=== PATIENT | female | born 1975 ===

== ENCOUNTER 2018-01-04 23:23 | Emergency (ER) | payer SELFPAY ==
[2018-01-05 02:29] LABS: ABSOLUTE BASOPHILS # (AUTO) 0.1 10^3/uL (0.0-0.2); ABSOLUTE LYMPHOCYTES (AUTO) 0.7 10^3/uL (0.5-4.7); ABSOLUTE MONOCYTES (AUTO) 0.1 10^3/uL (0.1-1.4); BASOPHILS % (AUTO) 0.7 % (0-2); HEMATOCRIT 36.7 % (36.0-47.0); HEMOGLOBIN 11.9 g/dL (12.0-15.5); LYMPHOCYTES % (AUTO) 8.7 % (13-45); MEAN CORPUSCULAR HEMOGLOBIN 25.4 pg (27.0-33.4); MEAN CORPUSCULAR HGB CONC 32.4 g/dL (32.0-36.0); MEAN CORPUSCULAR VOLUME 78 fl (80-97); PLATELET COUNT 384 10^3/uL (150-450); RED BLOOD COUNT 4.69 10^6/uL (3.72-5.28); RED CELL DISTRIBUTION WIDTH 18.7 % (11.5-14.0); SEGMENTED NEUTROPHILS % (AUTO) 89.6 % (42-78); TOTAL CELLS COUNTED % (AUTO) 100 %; WHITE BLOOD COUNT 7.8 10^3/uL (4.0-10.5)
[2018-01-05 02:41] LABS: ALANINE AMINOTRANSFERASE 17 U/L (9-52); ALBUMIN 4.5 g/dL (3.5-5.0); ALKALINE PHOSPHATASE 72 U/L (38-126); ANION GAP 9 (5-19); ASPARTATE AMINO TRANSFERASE 18 U/L (14-36); BILIRUBIN,DIRECT 0.3 mg/dL (0.0-0.4); BILIRUBIN,TOTAL 0.3 mg/dL (0.2-1.3); BLOOD UREA NITROGEN 9 mg/dL (7-20); CALCIUM 10.3 mg/dL (8.4-10.2); CARBON DIOXIDE 22 mmol/L (22-30); CHLORIDE 109 mmol/L (98-107); CREATINE KINASE 110 U/L (30-135); GLUCOSE 149 mg/dL (75-110); POTASSIUM 4.5 mmol/L (3.6-5.0); TOTAL PROTEIN 7.2 g/dL (6.3-8.2)
--- NOTE | 2018-01-05 02:42 | RADIOLOGY REPORT (SQ) ---
EXAM DESCRIPTION: CHEST PA/LAT CLINICAL HISTORY: chest pain under left breast sharp COMPARISON: None. FINDINGS: Frontal and lateral views of the chest. The cardiomediastinal silhouette has normal size and contour. No consolidation, pneumothorax, or pleural effusion. Postoperative change of the cervical spine. No displaced rib fractures identified. Upper abdominal soft tissues are unremarkable. IMPRESSION: 1. No acute pulmonary process identified.
[2018-01-05 02:53] LABS: CREATINE KINASE MB 1.02 ng/mL (<4.55)
[2018-01-05 02:54] LABS: TROPONIN I < 0.012 ng/mL
[2018-01-05] MEDS ORDERED: LIDOCAINE 5% (700 MG) TRANSDERMAL ADH..PATCH TP ONE (06:35)
--- NOTE | 2018-01-05 06:36 | ER Document Report ---
ED General - General Chief Complaint: Breast Problem Stated Complaint: BREAST PAIN Time Seen by Provider: 01/05/18 01:17 TRAVEL OUTSIDE OF THE [place] IN LAST 30 DAYS: No - HPI Patient complains to provider of: Left lower chest pain left breast pain Notes: Patient coming in for evaluation of left lower chest pain left breast pain started at 945 night prior to arrival. Patient denies any fevers chills nausea vomiting with the pain. Denies any recent trauma. Patient states pain is exacerbated whenever she bends backwards bends forward or takes a deep breath in. Patient sleeping upon my evaluation no signs of any obvious distress. - Related Data Allergies/Adverse Reactions: azithromycin [From Zithromax] Allergy (Verified 01/05/18 01:20) erythromycin base [Erythromycin Base] Allergy (Verified 06/05/14 22:14) fluoxetine HCl [From Prozac] Allergy (Verified 06/05/14 22:14) milnacipran HCl [From Savella] Allergy (Verified 06/05/14 22:14) triamcinolone acetonide [From Kenalog] Allergy (Verified 06/05/14 22:14) Past Medical History - Social History Smoking Status: Current Every Day Smoker Chew tobacco use (# tins/day): No Frequency of alcohol use: Occasional Drug Abuse: None Family History: Reviewed & Not Pertinent Patient has suicidal ideation: No Patient has homicidal ideation: No Renal/ Medical History: Denies: Hx Peritoneal Dialysis Past Surgical History: Reports: Hx Appendectomy, Hx Section, Hx Orthopedic Surgery, Hx Tonsillectomy - Immunizations Hx Diphtheria, Pertussis, Tetanus Vaccination: Yes Review of Systems - Review of Systems Constitutional: No symptoms reported EENT: No symptoms reported Cardiovascular: Chest pain - Chest wall pain Respiratory: No symptoms reported Gastrointestinal: No symptoms reported Genitourinary: No symptoms reported Female Genitourinary: No symptoms reported Musculoskeletal: No symptoms reported Skin: No symptoms reported Hematologic/Lymphatic: No symptoms reported Neurological/Psychological: No symptoms reported Physical Exam - Vital signs Vitals: Temp Pulse Resp BP Pulse Ox 98.5 F 101 H 18 121/71 99 01/05/18 01:20 01/05/18 01:20 01/05/18 01:20 01/05/18 01:20 01/05/18 01:20 Interpretation: Normal - General General appearance: Appears well, Alert - HEENT Head: Normocephalic, Atraumatic Eyes: Normal Pupils: PERRL - Respiratory Respiratory status: No respiratory distress Chest status: Tender - Tenderness to palpation of the left lower chest. Evaluation underneath the breast does not reveal any rashes or any bruising. Breath sounds: Normal Chest palpation: Normal - Cardiovascular Rhythm: Regular Heart sounds: Normal auscultation Murmur: No - Abdominal Inspection: Normal Distension: No distension Bowel sounds: Normal Tenderness: Nontender Organomegaly: No organomegaly - Back Back: Normal, Nontender - Extremities General upper extremity: Normal inspection, Nontender, Normal color, Normal ROM , Normal temperature General lower extremity: Normal inspection, Nontender, Normal color, Normal ROM , Normal temperature, Normal weight bearing. No: Silvano's sign - Neurological Neuro grossly intact: Yes Cognition: Normal Orientation: AAOx4 [place] Coma Scale Eye Opening: Spontaneous Manuel Coma Scale Verbal: Oriented Manuel Coma Scale Motor: Obeys Commands [place] Coma Scale Total: 15 Speech: Normal Motor strength normal: LUE, RUE, LLE, RLE Sensory: Normal - Psychological Associated symptoms: Normal affect, Normal mood - Skin Skin Temperature: Warm Skin Moisture: Dry Skin Color: Normal Course - Re-evaluation Re-evalutation: 01/05/18 14:53 The patient has atypical chest pain as the patient's chest pain is not suggestive of pulmonary embolus, cardiac ischemia, aortic dissection, or other serious etiology. Given the extremely low risk of these diagnoses further testing and evaluation for these possibilities does not appear to be indicated at this time. The patient has been instructed to return if the symptoms worsen or change in any way. Evaluation is consistent with chest wall pain will discharge home - Vital Signs Vital signs: Temp Pulse Resp BP Pulse Ox 98.8 F 86 16 112/76 98 01/05/18 07:06 01/05/18 07:06 01/05/18 07:06 01/05/18 07:06 01/05/18 07:06 - Laboratory Result Diagrams: 01/05/18 02:16 01/05/18 02:16 Laboratory results interpreted by me: 01/05/18 01/05/18 02:16 02:16 Hgb 11.9 L MCV 78 L MCH 25.4 L RDW 18.7 H Seg Neutrophils % 89.6 H Lymphocytes % 8.7 L Monocytes % 1.0 L Chloride 109 H Glucose 149 H Calcium 10.3 H Discharge - Discharge Clinical Impression: left lower chest pain Condition: Good Disposition: HOME, SELF-CARE Instructions: Chest Wall Pain ([facility]), Chest Pain of Unclear Cause ([facility]) Additional Instructions: Your laboratory studies that did not show any signs of cardiac pathology or lung pathology. I believe your symptoms more muscle skeletal in nature he may have injured muscle and this might hurts when he move or bend. Again your laboratory studies are otherwise negative. Please follow-up with your primary care physician take your home medications as prescribed. Referrals: IRVIN ESPINOSA MD [Primary Care Provider] - Follow up as needed
[2018-01-05 07:11] VITALS: BP 112/76
--- NOTE | 2018-01-05 09:17 | EKG REPORT ---
SEVERITY:- BORDERLINE ECG - SINUS TACHYCARDIA BORDERLINE R WAVE PROGRESSION, ANTERIOR LEADS BORDERLINE T ABNORMALITIES, ANT-LAT LEADS : Confirmed by: Nikky Levin 05-Jan-2018 09:17:01
== END 2018-01-05 07:06 | disposition home or self-care (01) ==
LOC: ER 23:23
DX: R07.9 Chest pain, unspecified (principal); F17.200 Nicotine dependence, unspecified, uncomplicated; Z88.3 Allergy status to other anti-infective agents
CPT/HCPCS: 36415; 71046; 80053; 82550; 82553; 84484; 84703; 85025; 93005; 93010; 99285

== ENCOUNTER 2020-02-05 16:38 | Emergency (ER) | payer SELFPAY ==
[2020-02-05] MEDS ORDERED: NORMAL SALINE 1000 ML 1,000 ML IV ONE ×2 (17:50→19:32)
[2020-02-05] MEDS ORDERED: ONDANSETRON HCL INJ/PF 4 MG/2 ML SDV IV ONE (17:50)
--- NOTE | 2020-02-05 17:52 | ER Document Report ---
ED Medical Screen (RME) - General Chief Complaint: Abdominal Pain Stated Complaint: ABDOMINAL PAIN,VOMITING,DIARRHEA Time Seen by Provider: 02/05/20 17:46 Primary Care Provider: AARON MARC MD [Primary Care Provider] - Follow up as needed Mode of Arrival: Wheelchair Information source: Patient Notes: 45-year-old female with history of neck surgery, low cortisone presents emergency department with complaints of vomiting since 3 PM yesterday. She reports she ate a hamburger and Hebrew fries. Started vomiting shortly after that. Complains her abdomen is sore from vomiting. Reports she vomited before the abdomen started hurting. Denies fever. Has had some diarrhea. Did not receive flu vaccine this year. I have greeted and performed a rapid initial assessment of this patient. A comprehensive ED assessment and evaluation of the patient, analysis of test results and completion of the medical decision making process will be conducted by additional ED providers. TRAVEL OUTSIDE OF THE [place] IN LAST 30 DAYS: No - Related Data Allergies/Adverse Reactions: azithromycin [From Zithromax] Allergy (Verified 02/05/20 17:45) erythromycin base [Erythromycin Base] Allergy (Verified 02/05/20 17:45) fluoxetine HCl [From Prozac] Allergy (Verified 02/05/20 17:45) milnacipran HCl [From Savella] Allergy (Verified 02/05/20 17:45) triamcinolone acetonide [From Kenalog] Allergy (Verified 02/05/20 17:45) Past Medical History Renal/ Medical History: Denies: Hx Peritoneal Dialysis Past Surgical History: Reports: Hx Appendectomy, Hx Section, Hx Orthopedic Surgery, Hx Tonsillectomy - Immunizations Hx Diphtheria, Pertussis, Tetanus Vaccination: Yes Physical Exam - Vital signs Vitals: Temp Pulse Resp BP Pulse Ox 99.0 F 127 H 18 115/95 H 98 02/05/20 16:47 02/05/20 16:47 02/05/20 16:47 02/05/20 16:47 02/05/20 16:47 Course - Vital Signs Vital signs: Temp Pulse Resp BP Pulse Ox 99.0 F 127 H 18 115/95 H 98 02/05/20 16:47 02/05/20 16:47 02/05/20 16:47 02/05/20 16:47 02/05/20 16:47 Doctor's Discharge - Discharge Referrals: AARON MARC MD [Primary Care Provider] - Follow up as needed
[2020-02-05 18:37] LABS: ABSOLUTE BASOPHILS # (AUTO) 0.1 10^3/uL (0.0-0.2); ABSOLUTE EOSINOPHILS # (AUTO) 0.1 10^3/uL (0.0-0.6); ABSOLUTE LYMPHOCYTES (AUTO) 1.6 10^3/uL (0.5-4.7); ABSOLUTE MONOCYTES (AUTO) 0.6 10^3/uL (0.1-1.4); ABSOLUTE NEUT (AUTO) 7.2 10^3/uL (1.7-8.2); BASOPHILS % (AUTO) 0.6 % (0-2); EOSINOPHILS % (AUTO) 0.7 % (0-6); HEMOGLOBIN 13.2 g/dL (12.0-15.5); LYMPHOCYTES % (AUTO) 16.6 % (13-45); MEAN CORPUSCULAR HEMOGLOBIN 25.4 pg (27.0-33.4); MEAN CORPUSCULAR HGB CONC 32.2 g/dL (32.0-36.0); MEAN CORPUSCULAR VOLUME 79 fl (80-97); MONOCYTES % (AUTO) 6.1 % (3-13); PLATELET COUNT 367 10^3/uL (150-450); RED CELL DISTRIBUTION WIDTH 17.4 % (11.5-14.0); TOTAL CELLS COUNTED % (AUTO) 100 %; WHITE BLOOD COUNT 9.4 10^3/uL (4.0-10.5)
[2020-02-05 18:55] LABS: ALBUMIN 4.3 g/dL (3.5-5.0); ALKALINE PHOSPHATASE 70 U/L (38-126); ANION GAP 8 (5-19); ASPARTATE AMINO TRANSFERASE 21 U/L (14-36); BILIRUBIN,TOTAL 0.4 mg/dL (0.2-1.3); BLOOD UREA NITROGEN 23 mg/dL (7-20); CALCIUM 9.2 mg/dL (8.4-10.2); CARBON DIOXIDE 28 mmol/L (22-30); CHLORIDE 100 mmol/L (98-107); GLUCOSE 99 mg/dL (75-110); POTASSIUM 4.2 mmol/L (3.6-5.0); TOTAL PROTEIN 6.9 g/dL (6.3-8.2)
[2020-02-05 19:02] LABS: APPEARANCE,URINE SLIGHTLY-CLOUDY; BILIRUBIN,URINE NEGATIVE (NEGATIVE); COLOR,URINE AMBER; GLUCOSE, URINE NEGATIVE (NEGATIVE); KETONES,URINE NEGATIVE (NEGATIVE); LEUKOCYTE ESTERASE,URINE NEGATIVE (NEGATIVE); NITRITE,URINE NEGATIVE (NEGATIVE); PROTEIN,URINE 30 mg/dL (NEGATIVE); URINE SPECIFIC GRAVITY 1.035
--- NOTE | 2020-02-05 19:07 | ER Document Report ---
ED General - General Chief Complaint: Vomiting Stated Complaint: ABDOMINAL PAIN,VOMITING,DIARRHEA Time Seen by Provider: 02/05/20 17:46 Primary Care Provider: AARON MARC MD [Primary Care Provider] - Follow up as needed Mode of Arrival: Wheelchair Information source: Patient, Relative Notes: 45-year-old female with history of neck surgery, low cortisone presents emergency department with complaints of vomiting since 3 PM yesterday. She reports she ate a hamburger and Yoruba fries. Started vomiting shortly after that. Complains her abdomen is sore from vomiting. Reports she vomited before the abdomen started hurting. Denies fever. Has had some diarrhea. 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 No other family members are sick patient has diffuse abdominal soreness. She just continues to have nausea but now is only dry heaving and no longer has any diarrhea. Her mouth is quite dry. Her blood pressure was low upon arrival according to her daughter. Her blood pressure is 115/91 at this time. Both daughter and patient report that this is their normal blood pressure. Patient is already had 1 bag of IV saline. " She was diagnosed with thyroid disease here 2 years ago with a TSH of 132 and her looked up multiple symptoms she was having and diagnosed her with Jesus Manuel's disease. " Indeed she went to [place] [facility] and was diagnos ed with adrenal insufficiency. She now takes steroids. TRAVEL OUTSIDE OF THE [place] IN LAST 30 DAYS: No - HPI Onset: Just prior to arrival Onset/Duration: Sudden Quality of pain: Achy Severity: Mild Pain Level: 1 Associated symptoms: Nausea, Vomiting Exacerbated by: Food Relieved by: Denies - Related Data Allergies/Adverse Reactions: azithromycin [From Zithromax] Allergy (Verified 02/05/20 17:45) erythromycin base [Erythromycin Base] Allergy (Verified 02/05/20 17:45) fluoxetine HCl [From Prozac] Allergy (Verified 02/05/20 17:45) milnacipran HCl [From Savella] Allergy (Verified 02/05/20 17:45) triamcinolone acetonide [From Kenalog] Allergy (Verified 02/05/20 17:45) Past Medical History - General Information source: Patient - Social History Smoking Status: Current Every Day Smoker Chew tobacco use (# tins/day): No Frequency of alcohol use: Occasional Drug Abuse: None Family History: Reviewed & Not Pertinent Patient has suicidal ideation: No Patient has homicidal ideation: No Endocrine Medical History: Reports: Hx Hypothyroidism, Other - adrenal disease Renal/ Medical History: Denies: Hx Peritoneal Dialysis Past Surgical History: Reports: Hx Appendectomy, Hx Section, Hx Orthopedic Surgery, Hx Tonsillectomy - Immunizations Hx Diphtheria, Pertussis, Tetanus Vaccination: Yes Review of Systems - Review of Systems Constitutional: See HPI, Malaise, Weakness, Weight loss, Recent illness EENT: No symptoms reported Cardiovascular: No symptoms reported Respiratory: No symptoms reported Gastrointestinal: See HPI, Abdominal pain, Diarrhea, Nausea, Vomiting, Poor appetite, Poor fluid intake Genitourinary: See HPI Female Genitourinary: No symptoms reported Musculoskeletal: No symptoms reported Skin: No symptoms reported Hematologic/Lymphatic: No symptoms reported Neurological/Psychological: No symptoms reported Physical Exam - Vital signs Vitals: Temp Pulse Resp BP Pulse Ox 99.0 F 127 H 18 115/95 H 98 02/05/20 16:47 02/05/20 16:47 02/05/20 16:47 02/05/20 16:47 02/05/20 16:47 Interpretation: Normal - General General appearance: Alert In distress: Mild - HEENT Head: Normocephalic Eyes: Normal Conjunctiva: Normal Cornea: Normal Extraocular movements intact: Yes Eyelashes: Normal Pupils: PERRL Mouth/Lips: Normal Mucous membranes: Dry Pharynx: Normal Neck: Normal - Respiratory Respiratory status: No respiratory distress Chest status: Nontender Breath sounds: Normal Chest palpation: Normal - Cardiovascular Rhythm: Regular Heart sounds: Normal auscultation Murmur: No Friction rub: No Km's crunch: No - Abdominal Inspection: Normal Distension: No distension Bowel sounds: Hyperactive Tenderness: Tender Organomegaly: No organomegaly - Back Back: Normal - Extremities General upper extremity: Normal inspection General lower extremity: Normal inspection - Neurological Neuro grossly intact: Yes Cognition: Normal Orientation: AAOx4 [place] Coma Scale Eye Opening: Spontaneous [place] Coma Scale Verbal: Oriented [place] Coma Scale Motor: Obeys Commands Manuel Coma Scale Total: 15 Speech: Normal Cranial nerves: Normal Cerebellar coordination: Normal Motor strength normal: LUE, RUE, LLE, RLE - Psychological Associated symptoms: Normal affect - Skin Skin Temperature: Warm Skin Moisture: Dry Skin Turgor: Tenting Course - Vital Signs Vital signs: Temp Pulse Resp BP Pulse Ox 99.0 F 127 H 11 L 126/83 H 97 02/05/20 16:47 02/05/20 16:47 02/05/20 20:01 02/05/20 20:00 02/05/20 20:01 - Laboratory Result Diagrams: 02/05/20 18:20 02/05/20 18:20 Laboratory results interpreted by me: 02/05/20 02/05/20 02/05/20 18:20 18:20 18:30 MCV 79 L MCH 25.4 L RDW 17.4 H Sodium 135.7 L BUN 23 H Urine Protein 30 H Urine Blood MODERATE H Urine Urobilinogen 2.0 H - Diagnostic Test Radiology reviewed: Reports reviewed Critical Care Note - Critical Care Note Total time excluding time spent on procedures (mins): 90 Comments: I advised patient not to eating more hamburgers at the restaurant on [place] Discharge - Discharge Clinical Impression: Food poisoning, Vomiting and diarrhea, Dehydration Condition: Good Disposition: HOME, SELF-CARE Instructions: Abdominal Pain ([facility]) Additional Instructions: Follow-up with personal doctor this week; return to ER as needed; take medicines as directed; encourage fluids ;avoid meat and milk products for at least 24 hours ;advance to brat diet bananas rice applesauce toast anni harriet crackers Prescriptions: Promethazine HCl [Phenergan 25 mg Tablet] 1 tab PO Q6H PRN #15 tablet PRN Reason: Forms: Return to Work Referrals: AARON MARC MD [Primary Care Provider] - Follow up as needed
[2020-02-05 19:16] LABS: ADD MANUAL MICROSCOPIC YES
[2020-02-05] MEDS ORDERED: HYDROMORPHONE HCL INJ/PF 2 MG/ML AMPULE IV ONE (19:30)
[2020-02-05] MEDS ORDERED: PROMETHAZINE HCL INJ 25 MG/1 ML VIAL IV ONE (19:31)
[2020-02-05 20:23] VITALS: BP 126/83
[2020-02-05] MEDS ORDERED: HYDROCODONE/ACETAMINOPHEN 5-325 MG (6 TAB/ER DISP) PO PRN (20:42)
[2020-02-05] MEDS ORDERED: ONDANSETRON ODT 4 MG TAB (6 TAB/ER DISP) PO PRN (20:43)
--- NOTE | 2020-02-05 21:08 | RADIOLOGY REPORT (SQ) ---
EXAM DESCRIPTION: RadLex: CT ABDOMEN PELVIS WITH IV CONTRAST CLINICAL HISTORY: 45 years Female; vomit diarrhea diffuse belly pain; TECHNIQUE: CT of the abdomen and pelvis using intravenous contrast. All CT scans at this facility use dose modulation, iterative reconstruction, and/or weight based dosing when appropriate to reduce radiation dose to as low as reasonably achievable. COMPARISON: None. FINDINGS: Abdomen: Liver:No focal lesions. No intrahepatic ductal distention. Gallbladder:Nondistended Pancreas:Within normal limits Spleen:Within normal limits Right kidney:No hydronephrosis. No focal lesion. Left kidney:No hydronephrosis. No focal lesion. Adrenal glands:Within normal limits Vascular structures: Mild scattered aortic calcifications. No aortic aneurysm. Pelvis: Small bowel:No significant distention. Appendix:Within normal limits Colon:No distention or acute pericolonic edema. No free intraperitoneal fluid or air. Bones: No acute bone findings. Bladder: Unremarkable. Uterus is unremarkable. Right ovary: 3 cm diameter low-density structure, without adjacent edema. No left adnexal enlargement. IMPRESSION: 1. 3 cm right ovarian cystic structure. This is likely a benign cyst. No follow-up imaging indicated, unless there is clinical concern for ovarian torsion. 2. No acute findings. No bowel obstruction or perforation.
== END 2020-02-05 21:49 | disposition home or self-care (01) ==
LOC: ER 16:38
DX: A05.9 Bacterial foodborne intoxication, unspecified (principal); R19.7 Diarrhea, unspecified; R11.2 Nausea with vomiting, unspecified; E86.0 Dehydration; R10.9 Unspecified abdominal pain; R10.819 Abdominal tenderness, unspecified site; R63.0 Anorexia; R53.81 Other malaise; R53.1 Weakness; R63.4 Abnormal weight loss; F17.200 Nicotine dependence, unspecified, uncomplicated; E27.40 Unspecified adrenocortical insufficiency; Z79.82 Long term (current) use of aspirin; Z88.1 Allergy status to other antibiotic agents; Z88.8 Allergy status to other drugs, medicaments and biological substances; Z88.6 Allergy status to analgesic agent
CPT/HCPCS: 99284; 96361; 96374; 96375; 36415; 83690; 85025; 80053; 81001; 74177; J1170; J2550; J2405; J7030